=== PATIENT | male | born 1935 | race Caucasian/White ===

== ENCOUNTER → 2019-04-18 13:15 | Outpatient (CLI) | payer OTHER, SELFPAY ==
--- NOTE | 2019-04-18 | DI.ECHO.S_ITS ---
[facility]---------+ [facility] +---------+ : : [address] : : : : [phone] : : : : Phone: [phone]+ Echocardiogram Report + + :Name: SHARRI LOUIS Study Date: 04/18/2019 Height: 70 in : :[facility] Weight: 191 lb : : Gender: Male BSA: 2.0 m2 : :: 1935 Age: 84 yrs BP: 122/58 mmHg: :Reason For Study: Dyspnea : :Ordering Physician: Jailene : :Grupo Garcia Performed By: Kinza Guzmán : :Referring: JEFRY LEUNG N : + + Interpretation Summary The left ventricle is normal in size. The ejection fraction is estimated to be 60-65%. The right ventricle is grossly normal size. The right ventricular systolic function is normal. No significant valvular pathology seen. The IVC is of normal diameter and collapses greater than 50% with a sniff. This suggests a low right atrial pressure of 3 mm Hg. In comparison to previous study, patient is in sinus rhythm and not in atrial flutter. Procedure: A two-dimensional transthoracic echocardiogram with color flow and Doppler was performed. The study quality was technically adequate. Comparison is made with the echocardiogram of 08-09-16. The patient was in normal sinus rhythm during the exam. Left Ventricle: The left ventricle is normal in size. There is normal left ventricular wall thickness. There is no thrombus. The ejection fraction is estimated to be 60-65%. There are no focal wall motion abnormalities. Diastolic parameters suggest a relaxation abnormality of the left ventricle, consistent with probable normal filling pressures. Right Ventricle: The right ventricle is grossly normal size. The right ventricular systolic function is normal. Atria: The left atrium is moderately dilated. The left atrium has remained unchanged in size since the prior echo exam. Right atrial size is normal. The interatrial septum is intact with no evidence for an atrial septal defect. Mitral Valve: There is mild to moderate mitral annular calcification. No significant mitral valve stenosis. There is trace mitral regurgitation. Aortic Valve: The aortic valve is not well visualized. The aortic valve is slightly calcified. There is no aortic valve stenosis. No aortic regurgitation is present. Tricuspid Valve: The tricuspid valve is normal. There is trace tricuspid regurgitation. Pulmonary artery pressures cannot be estimated because of the lack of a measurable TR jet velocity. Pulmonic Valve: The pulmonic valve is not well seen, but is grossly normal. There is no pulmonic valvular regurgitation. Great Vessels: The aortic root is normal size. The dimensions of the ascending aorta are normal. The aortic arch is at the upper limits of normal in size. The IVC is of normal diameter and collapses greater than 50% with a sniff. This suggests a low right atrial pressure of 3 mm Hg. Pericardium/ Pleura There is no pericardial effusion. There is no pleural effusion. MMode/2D Measurements & Calculations LVIDd: 4.3 cm Ao root diam: 3.4 cm LVIDs: 2.7 cm Aortic Jxn: 2.7 cm FS: 37.5 % asc Aorta Diam: 3.1 cm EPSS: 0.66 cm Ao Arch Diam (Prox Trans): 3.3 cm IVSd: 1.00 cm LVPWd: 1.0 cm LV avalos. diameter/BSA (cm/m^2): 2.1 LV sys. diameter/BSA (cm/m^2): 1.3 LA dimension: 5.1 cm RA long axis: 6.0 cm LA A2 area: 27.9 cm2 RA area: 21.7 cm2 LA A4 area: 24.4 cm2 RA vol: 66.8 ml LA length (vol): 6.2 cm RA : 32.6 ml/m2 LA vol: 92.7 ml IVC diam: 1.7 cm LA vol index: 45.3 ml/m2 RVDd major: 5.9 cm RVD1 (basal): 3.9 cm RVD2 (mid): 3.3 cm Doppler Measurements & Calculations Ao V2 max: 175.0 cm/sec MV E max sunil: 65.4 cm/sec Ao V2 mean: 111.2 cm/sec MV A max sunil: 66.2 cm/sec Ao max P.2 mmHg MV E/A: 0.99 Ao mean P.8 mmHg Med Peak E' Sunil: 5.6 cm/sec Ao V2 VTI: 35.1 cm E/E' med: 11.7 Lat Peak E' Sunil: 5.5 cm/sec E/E' lat: 11.9 E/e' average: 11.8 MV dec time: 0.26 sec MV P1/2t: 80.0 msec PA V2 max: 80.6 cm/sec MV P1/2t max sunil: 65.7 cm/sec PA V2 mean: 54.0 cm/sec MVA(P1/2t): 2.7 cm2 PA mean P.4 mmHg PA Accel Time: 0.16 sec Reading Physician:02:36 PM
== END ==
PROVIDERS: PCP Internal Medicine; Visit Provider Nurse Practitioner
DX: R06.09 Other forms of dyspnea (principal)
CPT/HCPCS: 93306

== ENCOUNTER → 2020-11-10 15:21 | Outpatient (CLI) | payer MEDICARE, SELFPAY ==
[2020-11-10] MEDS: COVID-19 VACC #1, MRNA(MOD) 100 MCG/0.5 ML VIAL IM (15:37)
== END ==
PROVIDERS: PCP Internal Medicine; Visit Provider Internal Medicine
DX: Z23 Encounter for immunization (principal)
CPT/HCPCS: 0011A; 91301

== ENCOUNTER → 2020-12-08 15:25 | Outpatient (CLI) | payer MEDICARE, SELFPAY ==
[2020-12-08] MEDS: COVID-19 VACC #2, MRNA(MOD) 100 MCG/0.5 ML VIAL IM (15:32)
== END ==
PROVIDERS: PCP Internal Medicine; Visit Provider Internal Medicine
DX: Z23 Encounter for immunization (principal)
CPT/HCPCS: 0012A; 91301

== ENCOUNTER → 2024-06-16 09:59 | Outpatient (CLI) | payer OTHER, SELFPAY ==
[2024-06-16 10:56] LABS: Alanine Aminotransferase 27 IU/L (<50); Albumin 4.2 g/dL (3.5-5.0); Albumin Globulin Ratio 1.7 (1.0-2.8); Alkaline Phosphatase 85 U/L (38-126); Aspartate Aminotransferase 26 IU/L (17-59); BUN Creatinine Ratio 19.1 (6-22); Bilirubin Total 1.6 mg/dL (0.2-1.3); Blood Urea Nitrogen 18 mg/dL (9-20); Calcium 9.3 mg/dL (8.4-10.2); Carbon Dioxide 27 mmol/L (22-32); Chloride 104 mmol/L (98-107); Cholesterol 196 mg/dL (140-199); Estimated Glomerular Filt Rate > 60 mL/min (>60); Globulin 2.5 g/dL (1.7-4.1); Glucose 107 mg/dL (80-110); HDL Cholesterol 53 mg/dL (40-60); HEMOLYSIS < 15 (0-50); LDL Cholesterol Calculated 120 mg/dL (<100); Potassium 4.1 mmol/L (3.4-5.1); Sodium 138 mmol/L (137-145); Total Protein 6.7 g/dL (6.3-8.2); Triglycerides 116 mg/dL (35-150)
== END ==
PROVIDERS: PCP Internal Medicine; Referring Provider Internal Medicine; Visit Provider Internal Medicine
DX: I10 Essential (primary) hypertension (principal); E78.00 Pure hypercholesterolemia, unspecified; I48.92 Unspecified atrial flutter; E80.4 Gilbert syndrome
CPT/HCPCS: 36415; 80053; 80061

== ENCOUNTER → 2024-06-23 08:45 | Outpatient (CLI) | payer OTHER, SELFPAY ==
--- NOTE | 2024-06-23 08:47 | DI.ECHO.S_ITS ---
[place] +---------+ [facility] : : [address] : : [phone] : : Phone: [phone] Echocardiogram Report + + :Name: SHARRI LOUIS Study Date: 06/23/2024 Height: 70 in : :[facility] ReadingLocation: Weight: 190 lb : : Gender: Male BSA: 2.0 m2 : :: 1935 Age: 89 yrs BP: 145/84 mmHg: :Reason For Study: SHORTNESS OF BREATH : :Ordering Physician: MAJO, : :FLORIDALMA Performed By: Dong Garcia : :Referring: FLORIDALMA KASPER : + + Interpretation Summary The study quality was technically difficult. The patient was in atrial fibrillation with heart rates between 76-95 bpm during the exam. Left ventricular wall thickness is mildly increased. The ejection fraction is estimated to be 60-65%. Probable hypokinesis of the inferolateral wall. Diastolic function could not be accurately assessed due to atrial fibrillation. The left atrium is severely dilated. The right ventricle is normal in size and function. The right atrium is moderately dilated. There is mild tricuspid regurgitation. The right ventricular systolic pressure is estimated to be at least 39 mmHg based on an estimated right atrial pressure of 3 mm Hg. Compared to the prior study dated 04/18/2019, there is now concern for inferolateral hypokinesis. Procedure: A two-dimensional transthoracic echocardiogram with color flow and Doppler was performed. The study quality was technically difficult. Comparison is made with the echocardiogram of 04/18/2019. The patient was in atrial fibrillation with heart rates between 76-95 bpm during the exam. Left Ventricle: The left ventricle is normal in size. Left ventricular wall thickness is mildly increased. There is no ventricular septal defect visualized. The ejection fraction is estimated to be 60-65%. Probable hypokinesis of the inferolateral wall. Diastolic function could not be accurately assessed due to atrial fibrillation. Right Ventricle: The right ventricle is normal in size and function. Atria: The left atrium is severely dilated. The right atrium is moderately dilated. There is no Doppler evidence for an atrial septal defect. Mitral Valve: There is mild to moderate mitral annular calcification. There is trace mitral regurgitation. Aortic Valve: The aortic valve is trileaflet. The aortic valve opens well. The aortic valve is mildly calcified. There is no hemodynamically significant valvular aortic stenosis. There is trace aortic regurgitation. Tricuspid Valve: The tricuspid valve is normal. There is mild tricuspid regurgitation. The right ventricular systolic pressure is estimated to be at least 39 mmHg based on an estimated right atrial pressure of 3 mm Hg. Pulmonic Valve: The pulmonic valve is not well visualized. Great Vessels: The aortic root is normal size. The ascending aorta could not be visualized. The pulmonary is not well visualized. The IVC is of normal diameter and collapses greater than 50% with a sniff. This suggests a low right atrial pressure of 3 mm Hg. Pericardium/ Pleura There is no pericardial effusion. There is no pleural effusion. MMode/2D Measurements & Calculations LVIDd: 5.3 cm LVOT diam: 2.0 cm LVIDs: 3.4 cm Ao root diam: 3.3 cm FS: 36.3 % EPSS: 0.56 cm IVSd: 1.1 cm LVPWd: 1.1 cm LV avalos. diameter/BSA (cm/m^2): 2.6 LV sys. diameter/BSA (cm/m^2): 1.7 LA A2 area: 24.7 cm2 RA long axis: 6.6 cm LA A4 area: 30.8 cm2 RA area: 20.3 cm2 LA length (vol): 6.6 cm RA vol: 52.8 ml LA vol: 97.6 ml RA : 25.9 ml/m2 LA vol index: 47.8 ml/m2 IVC diam: 1.9 cm RVD1 (basal): 3.5 cm RVD2 (mid): 2.9 cm TAPSE: 2.2 cm Doppler Measurements & Calculations Ao V2 max: 219.4 cm/sec LVOT Max Sunil: 101.7 cm/sec Ao V2 mean: 147.6 cm/sec LV V1 max P.1 mmHg Ao max P.3 mmHg LV V1 VTI: 17.2 cm Ao mean P.9 mmHg VICKEY(I,D): 1.2 cm2 Ao V2 VTI: 43.8 cm VICKEY(V,D): 1.5 cm2 sev ratio: 0.39 VICKEY indexed to BSA (cm^2/m^2): 0.61 Med Peak E' Sunil: 7.8 cm/sec TR max sunil: 298.9 cm/sec Lat Peak E' Sunil: 7.3 cm/sec TR max P.7 mmHg SV(LVOT): 54.4 ml Reading Physician:04:13 PM
--- NOTE | 2024-06-23 17:45 | DI.NM.S_ITS ---
DATE OF SERVICE: 06/23/2024 NUCLEAR CARDIOLOGY MYOCARDIAL PERFUSION STUDY PROCEDURE PERFORMED: Exercise treadmill, converted to pharmacologic vasodilators stress and rest myocardial perfusion imaging with gating to assess ejection fraction and regional wall motion. ORDERING PROVIDER: Jailene Garcia MD INDICATIONS: The patient is an 89-year-old male with recently discovered atrial flutter and exertional dyspnea. CARDIAC STRESS: The patient was initially stressed by treadmill but was able to exercise for only 2 minutes 10 seconds, achieving 4.6 METS with fairly accentuated heart rate response with a resting heart rate of 81 BPM increasing rapidly to 127 BPM after 2 minutes of exercise with associated dyspnea but no chest discomfort. He was subsequently converted to a pharmacologic study by injection of 0.4 mg of regadenoson with more significant dyspnea but no chest discomfort. His resting ECG shows atrial fib/flutter at 82 BPM with a RBBB but normal ST segments. With stress, there are no significant ST segment shifts but develops occasional PVCs, occasionally in couplets but no other complex ectopy. Per protocol, 27.5 millicuries of technetium-99m Myoview was injected and he was imaged 15 minutes later using a gated SPECT acquisition protocol. Earlier in the day while at rest, he had been injected with 12.1 millicuries of technetium-99m Myoview and imaged 15 minutes later, again using a gated SPECT acquisition protocol. FINDINGS: 1. Raw data: There is fair myocardial tracer uptake. While the lung/heart ratio is normal at 0.30, visually there is the appearance of increased tracer lung uptake, suggesting possible pulmonary congestion but clinical correlation is needed. The TID ratio is normal at 0.95. 2. Quantitated gated SPECT: Post-stress ejection fraction is 74% without any focal wall motion abnormality. The right ventricular free wall has increased tracer uptake, suggesting a possible right ventricular overload condition. The resting ejection fraction is 66% with a normal resting end-diastolic volume at 85 mL. 3. Myocardial perfusion imaging: Post-stress supine images show a fairly normal myocardial perfusion pattern without any concerning perfusion defects, supported by normal perfusion imaging in the prone position. The resting images show no areas of improvement. IMPRESSION: 1. Normal myocardial perfusion study for ischemia. 2. No perfusion defects to suggest myocardial ischemia or previous myocardial infarction. 3. Normal left ventricular size and systolic function without any focal wall motion abnormality. There is increased right ventricular tracer uptake which can be a sign of a right ventricular overload condition but clinical correlation is recommended. There is a visual suggestion of increased tracer uptake in the lungs although the calculated lung/heart ratio is normal at 0.30, and again requires clinical correlation. 4. Severely reduced exercise capacity, likely in part due to an accelerated heart rate response to exercise with underlying atrial fibrillation/flutter. He had no chest discomfort or ECG changes of ischemia. He had occasional PVCs, rarely in couplets, but no other arrhythmias except baseline atrial fibrillation/flutter. Clovis Garcia - NICHOL/yobany/ARNULFO doc#: [id number]/job#: [id number] dd: 06/23/2024 17:19:00 dt: 06/23/2024 17:31:00 DICTATING MD/COPIES TO: Ochoa Leija MD; Jailene Garcia MD COPIES MNE: [id number];
== END ==
PROVIDERS: PCP Internal Medicine; Referring Provider Internal Medicine Cardiovascular Disease; Visit Provider Internal Medicine Cardiovascular Disease
DX: I48.92 Unspecified atrial flutter (principal); R06.02 Shortness of breath; R53.83 Other fatigue; I10 Essential (primary) hypertension; E78.5 Hyperlipidemia, unspecified; R06.00 Dyspnea, unspecified
CPT/HCPCS: 78452; 93017; 93306; A9502; J2785

== ENCOUNTER → 2025-06-02 09:59 | Outpatient (CLI) | payer OTHER, SELFPAY ==
[2025-06-02 11:50] LABS: Alanine Aminotransferase 26 IU/L (<50); Albumin 4.3 g/dL (3.5-5.0); Albumin Globulin Ratio 1.6 (1.0-2.8); Alkaline Phosphatase 70 U/L (38-126); Blood Urea Nitrogen 12 mg/dL (9-20); Calcium 9.1 mg/dL (8.4-10.2); Carbon Dioxide 26 mmol/L (22-32); Chloride 104 mmol/L (98-107); Cholesterol 165 mg/dL (140-199); Estimated Glomerular Filt Rate > 60 mL/min (>60); Globulin 2.7 g/dL (1.7-4.1); Glucose 95 mg/dL (70-99); HDL Cholesterol 57 mg/dL (40-60); HEMOLYSIS < 15 (0-50); Potassium 4.5 mmol/L (3.4-5.1); Sodium 139 mmol/L (137-145); Total Protein 7.0 g/dL (6.3-8.2); Triglycerides 68 mg/dL (35-150)
== END ==
PROVIDERS: PCP Internal Medicine; Referring Provider Internal Medicine; Visit Provider Internal Medicine
DX: I10 Essential (primary) hypertension (principal); E78.00 Pure hypercholesterolemia, unspecified; I48.20 Chronic atrial fibrillation, unspecified; Z79.01 Long term (current) use of anticoagulants; E80.4 Gilbert syndrome
CPT/HCPCS: 36415; 80053; 80061